=== PATIENT | female | born 1975 | race Caucasian/White ===

== ENCOUNTER 2024-04-29 13:41 | Emergency (ER) | payer OTHER ==
[~2024-04-29] VITALS: Ht 162.6 cm; Wt 101.8 kg
[2024-04-29 14:54] LABS: BASO # 0.05 K/mm3 (0.02-0.10); EOS # 0.23 K/mm3 (0.04-0.40); EOS % 2.9 % (1.0-5.0); HEMATOCRIT 36.1 % (37.0-47.0); HEMOGLOBIN 12.1 g/dL (12.5-16.0); LYMPH# 2.63 K/mm3 (1.50-4.00); MEAN CELL VOLUME 89 fl (78-100); MEAN CORPUSCULAR HEMOGLOBIN 30 pg (27-31); MEAN CORPUSCULAR HGB CONC 34 g/dL (33-37); MEAN PLATELET VOLUME 9.1 fl (7.4-10.4); MONO # 0.96 K/mm3 (0.20-0.80); NEU # 3.94 K/mm3 (1.40-6.50); PLATELET COUNT 251 K/mm3 (130-400); RED BLOOD COUNT 4.05 M/mm3 (4.10-5.30); RED CELL DISTRIBUTION WIDTH 12.8 % (11.5-14.5); WHITE BLOOD COUNT 7.8 K/mm3 (4.8-10.8)
[2024-04-29 15:01] LABS: ALBUMIN 3.8 g/dL (3.5-5.0); SODIUM 140 mmol/L (136-145)
[2024-04-29 15:02] LABS: CALCIUM 8.8 mg/dL (8.3-10.5)
[2024-04-29 15:03] LABS: GLUCOSE 82 mg/dL (65-105)
[2024-04-29 15:04] LABS: TOTAL PROTEIN 6.7 g/dL (6.4-8.3)
[2024-04-29 15:05] LABS: CARBON DIOXIDE 23 mmol/L (22-29); TOTAL BILIRUBIN 0.3 mg/dL (0.2-1.2)
[2024-04-29 15:09] LABS: AST-SGOT 33 U/L (5-34)
[2024-04-29 15:10] LABS: ALT/SGPT 43 U/L (0-55)
[2024-04-29 15:15] LABS: PROTHROMBIN TIME 9.3 SECONDS (9.0-12.0)
[2024-04-29 15:23] LABS: PH-URINE 7.5 (5.0 - 8.0); URINE APPEARANCE CLEAR (CLEAR); URINE BILIRUBIN NEGATIVE (NEGATIVE); URINE BLOOD NEGATIVE (NEGATIVE); URINE COLOR YELLOW (YELLOW); URINE GLUCOSE NEGATIVE (NEGATIVE); URINE KETONE NEGATIVE (NEGATIVE); URINE LEUKOCYTE ESTERASE 2+ (NEGATIVE); URINE NITRATE NEGATIVE (NEGATIVE); URINE PROTEIN(semi-quant) NEGATIVE (NEGATIVE)
[2024-04-29 15:23] LABS: TROPONIN-I < 0.030 ng/mL (0.00-0.033)
[2024-04-29 16:40] VITALS: BP 127/90
== END 2024-04-29 16:41 | disposition home or self-care (01) ==
LOC: ED 13:41
PROVIDERS: Family Medicine
DX: H81.10 Benign paroxysmal vertigo, unspecified ear (principal); T78.1XXA Other adverse food reactions, not elsewhere classified, initial encounter; K14.6 Glossodynia; I95.1 Orthostatic hypotension; X58.XXXA Exposure to other specified factors, initial encounter